=== PATIENT | female | born 1945 | race Caucasian/White ===

== ENCOUNTER → 2018-09-18 | Outpatient (CLI) | payer MEDICARE, OTHER ==
[~2018-09-18] MED LIST: ACTONEL75 MG PO; ALEVE 220MG220 MG PO; FISH OIL REGUL300 MG PO; FLAX SEED OIL1000 MG PO; GARLIC OIL1 MG PO; SYNTHROID0.125 MG/T PO; VITAMIN D32000 IU PO
[2018-09-18 16:57] LABS: CREATININE, serum 0.97 (0.52-1.25); POTASSIUM 4.1 mmol/L (3.4-5.0)
== END ==
LOC: COL.LAB 10:31
PROVIDERS: Internal Medicine Pulmonary Disease
DX: Z01.89 Encounter for other specified special examinations (principal)

== ENCOUNTER 2019-04-18 14:28 | Observation (INO) | payer MEDICARE, OTHER ==
[~2019-04-18] VITALS: Ht 162.6 cm; Wt 60.6 kg
[2019-04-18 15:46] LABS: HEMOGLOBIN 10.4 g/dl (12.5-16.0); MEAN CELL VOLUME 97 fl (80.0-100.0); MEAN CORPUSCULAR HEMOGLOBIN 31 pg (27.0-31.0); MEAN CORPUSCULAR HGB CONC 32 g/dl (33.0-37.0); MEAN PLATELET VOLUME 9.3 fl (7.4-10.4); PLATELET COUNT 283 K/mm3 (130-400); RED BLOOD COUNT 3.33 M/mm3 (4.10-5.30); REDCELL DISTRIBUTION WIDTH-CV 14.4 % (11.5-14.5)
[2019-04-18 15:50] LABS: HEMATOCRIT 32.4 % (37.0-47.0)
[2019-04-18 16:19] LABS: BILIRUBIN,TOTAL 0.7 mg/dL (0.0-1.0); CALCIUM 8.7 mg/dL (8.4-10.2); CREATININE, serum 1.59 (0.52-1.25); POTASSIUM 4.2 mmol/L (3.4-5.0)
[2019-04-18 17:03] LABS: COLLECTION METHOD CLEAN CATCH
[2019-04-18 17:15] LABS: EOSINOPHIL 2 % (0-4); LYMPHOCYTE 32 % (20.0-51.0); NEUTROPHILS 65 % (42.0-75.2); PLATELET ESTIMATE NORMAL (NORMAL)
[2019-04-18 17:18] LABS: HYPOCHROMIA 1+
[2019-04-18 18:01] LABS: HYALINE CAST >12 /lpf; MUCOUS Present /lpf; PH 5 (5-8); URINE APPEARANCE Cloudy; URINE BACTERIA Moderate /hpf; URINE BILIRUBIN Negative (NEGATIVE); URINE BLOOD Negative (NEGATIVE); URINE COLOR Amber; URINE GLUCOSE Negative (NEGATIVE); URINE KETONE Negative (NEGATIVE); URINE LEUKOCYTE ESTERASE 2+ (NEGATIVE); URINE NITRATE Negative (NEGATIVE); URINE PROTEIN(semi-quant) Negative (NEGATIVE); URINE UROBILINOGEN >=4.0 mg/dL (NEGATIVE)
[2019-04-18] MEDS ORDERED: PRINIVIL2.5 MG PO ×2 (18:51→20:45)
[2019-04-18] MEDS ORDERED: SYNTHROID0.05 MG/TA PO (18:53)
[2019-04-18] MEDS ORDERED: FOSAMAX 70MG TA70 MG PO (18:54)
[2019-04-18] MEDS ORDERED: FOLIC ACID 11 MG/TA1 PO ×2 (18:55→20:43)
[2019-04-18] MEDS ORDERED: B-121000 MCG PO (18:55)
[2019-04-18] MEDS ORDERED: ZOCOR5 MG PO ×2 (18:55→20:44)
[2019-04-18] MEDS ORDERED: BINOSTO (20:02)
--- NOTE | 2019-04-18 21:00 | NUR ---
Pt arrived to room 358, transferred per wheelchair by ED staff. Pt awake, a&o, cooperative c cares. Family at bedside. Pt/family oriented to room, unit policies et current POC. Questions invited et answered, pt/family verbalize understanding. IV patent. Pt denies further needs at this time. Call light in reach, will continue c admit process.
[2019-04-18] MEDS ORDERED: ZOCOR 40MG40 MG PO (21:04)
[2019-04-18] MEDS ORDERED: SYNTHROID0.1 MG/TAB PO (21:04)
[2019-04-18] MEDS ORDERED: ZESTORETIC 12.51 TA1 PO (21:06)
[2019-04-18 21:55] VITALS: BP 121/57; PULSE 77; TEMP 98.1
[2019-04-19 05:42] VITALS: BP 138/59; PULSE 76; TEMP 98
[2019-04-19 06:46] LABS: MEAN CELL VOLUME 99 fl (80.0-100.0); MEAN CORPUSCULAR HGB CONC 31 g/dl (33.0-37.0); MEAN PLATELET VOLUME 9.5 fl (7.4-10.4); PLATELET COUNT 219 K/mm3 (130-400); RED BLOOD COUNT 2.84 M/mm3 (4.10-5.30); REDCELL DISTRIBUTION WIDTH-CV 14.1 % (11.5-14.5)
[2019-04-19 06:52] LABS: HEMATOCRIT 28.1 % (37.0-47.0); HEMOGLOBIN 8.8 g/dl (12.5-16.0); MEAN CORPUSCULAR HEMOGLOBIN 31 pg (27.0-31.0)
--- NOTE | 2019-04-19 07:15 | NUR ---
Patient is awake and alert in room, does mention she wishes to have iv fluids discontinued as she would like to go home today. Was notified to discuss this with the providers when they round. Denies pain. Call light and personal items are within reach.
[2019-04-19 07:22] LABS: BAND 2 % (0-10); EOSINOPHIL 1 % (0-4); LYMPHOCYTE 32 % (20.0-51.0); NEUTROPHILS 63 % (42.0-75.2); PLATELET ESTIMATE NORMAL (NORMAL)
[2019-04-19 07:26] LABS: ALBUMIN 3.3 gm/dL (3.5-5.0); CALCIUM 7.8 mg/dL (8.4-10.2); CREATININE, serum 1.17 (0.52-1.25); POTASSIUM 4.3 mmol/L (3.4-5.0); TOTAL PROTEIN 6.1 gm/dL (6.4-8.2)
[2019-04-19 07:40] LABS: BILIRUBIN UNCONJUGATED 0.2 mg/dL (0.0-1.1); BILIRUBIN,DIRECT 0.2 mg/dL (0.0-0.4); BILIRUBIN,TOTAL 0.4 mg/dL (0.0-1.0)
[2019-04-19 08:19] VITALS: BP 152/54; PULSE 74; TEMP 98.7
[2019-04-19] MEDS ORDERED: OMNICEF 300MG300 MG PO (11:29)
[2019-04-19] MEDS ORDERED: ROXICODONE 55 MG/TAB PO (11:29)
--- NOTE | 2019-04-19 11:36 | NUR ---
Utility Aircrewman attended clinical rounds with the team. Patient expressed she wants to go home and has no concerns about doing so at this time. Patient to discharge home today. Following rounds, SW met with patient to discuss discharge planning. Patient lives in [place] with her granddaughter, Jenna. Patient's daughter Raysa (ph#[phone]) is also very involved and helps patient with whatever she needs. Patient sees Dipti Carrillo, Nurse Practitioner for primary care and obtains her medications from the on [place]. Patient uses oxygen at night which she gets from [facility]. Patient reports she is independent with all ADLS. Patient states she has a living will and is considering setting up DPOA-HC. Patient states she will do this through legal services on [place]. Patient plans to return home with her daughter providing transportation.
--- NOTE | 2019-04-19 11:40 | NUR ---
Initial visit; Patient thanked Access Tech for looking in on her, visiting and offering God's blessings.
--- NOTE | 2019-04-19 15:30 | NUR ---
Patient discharged home at 1305 accompanied by daughter. Patient did not wish to review discharge instructions as she stated she would read them at home. She did ask that antibiotic be called to [facility] for easier picking tech for her. This was complete. This nurse assisted patient to front door, she did wish to ambulate, was offered wheelchair. Personal itmes were taken with patient.
== END 2019-04-19 13:05 | disposition home or self-care (01) ==
LOC: COL.ER 14:28 → MEDICAL 18:35
PROVIDERS: Emergency Medicine; ADMIT Student in an Organized Health Care Education/Training Program
DX: N39.0 Urinary tract infection, site not specified (principal); N17.9 Acute kidney failure, unspecified; C78.00 Secondary malignant neoplasm of unspecified lung; C80.1 Malignant (primary) neoplasm, unspecified; R10.9 Unspecified abdominal pain; I10 Essential (primary) hypertension; E78.5 Hyperlipidemia, unspecified; R74.0 Nonspecific elevation of levels of transaminase and lactic acid dehydrogenase [LDH]; E03.9 Hypothyroidism, unspecified; Z90.89 Acquired absence of other organs; Z90.49 Acquired absence of other specified parts of digestive tract; Z79.899 Other long term (current) drug therapy; Z87.891 Personal history of nicotine dependence; Z88.8 Allergy status to other drugs, medicaments and biological substances
CPT/HCPCS: A4216; G0378; J0696; J1644; J2405; J7030

== ENCOUNTER → 2019-10-08 | Outpatient (CLI) | payer MEDICARE, OTHER ==
[~2019-10-08] MED LIST changes: +B-121000 MCG PO; +BINOSTO; +FOLIC ACID 11 MG/TA1 PO; +FOSAMAX 70MG TA70 MG PO; +OMNICEF 300MG300 MG PO; +PEPCID40 MG PO; +PRINIVIL2.5 MG PO; +PRINZIDE 12.5 M1 TA1 PO; +ROXICODONE 55 MG/TAB PO; +SYNTHROID0.05 MG/TA PO; +SYNTHROID0.1 MG/TAB PO; +ZESTORETIC 12.51 TA1 PO; +ZOCOR 40MG40 MG PO; +ZOCOR5 MG PO
== END ==
LOC: COL.RAD 06:23
DX: C34.02 Malignant neoplasm of left main bronchus (principal); R79.89 Other specified abnormal findings of blood chemistry

== ENCOUNTER 2019-10-12 14:00 | Outpatient (RCR) | payer MEDICARE, OTHER ==
[2019-10-11 17:10] VITALS: BP 164/76; PULSE 69; TEMP 97.3
[2019-10-11 18:36] VITALS: BP 171/88; PULSE 74; TEMP 97.5
--- NOTE | 2019-10-11 18:49 | NUR ---
Per pt report she is unclear on home medication list.Requested pt to bring medication list with her to apt tomorrow.
[2019-10-11 18:55] VITALS: BP 172/72; PULSE 75; TEMP 98.1
[2019-10-11 19:10] VITALS: BP 164/76; PULSE 69; TEMP 97.3
[2019-10-11 19:40] VITALS: BP 177/78; PULSE 77; TEMP 97.9
[~2019-10-12] VITALS: Ht 162.6 cm; Wt 69.4 kg
[2019-10-12 14:15] VITALS: BP 120/62; PULSE 72; TEMP 97.9
[2019-10-12 14:58] VITALS: BP 126/68; PULSE 72; TEMP 98.1
[2019-10-12] MEDS ORDERED: ZOFRAN ODT8 MG PO (15:09)
[2019-10-12] MEDS ORDERED: LOMOTIL 0.025 M1 TAB PO (15:09)
[2019-10-12 15:13] VITALS: BP 123/61; PULSE 70; TEMP 98.1
[2019-10-12 15:28] VITALS: BP 121/58; PULSE 63; TEMP 98.1
[2019-10-12 16:00] VITALS: BP 126/74; PULSE 67; TEMP 98.1
== END 2019-10-12 16:00 | disposition home or self-care (01) ==
LOC: EUO 14:00
DX: C34.02 Malignant neoplasm of left main bronchus (principal)
CPT/HCPCS: J7050; P9035

== ENCOUNTER → 2019-10-25 | Outpatient (CLI) | payer MEDICARE, OTHER ==
[~2019-10-25] MED LIST changes: +LOMOTIL 0.025 M1 TAB PO; +ZOFRAN ODT8 MG PO
== END ==
LOC: COL.RAD 10:41
DX: M79.89 Other specified soft tissue disorders (principal); C34.02 Malignant neoplasm of left main bronchus

== ENCOUNTER 2020-01-25 11:30 | Outpatient (RCR) | payer MEDICARE, OTHER ==
[2019-12-27 10:29] VITALS: BP 114/71; PULSE 87; TEMP 98.2
[2019-12-28 11:30] VITALS: BP 140/70; PULSE 76; TEMP 97.6
--- NOTE | 2019-12-28 11:57 | NUR ---
Pt was escorted out by wheelchair to daughter's car. Instructions and PICC information packet sent with pt. [facility] called to request further lab and PICC care orders.
--- NOTE | 2020-01-04 13:30 | NUR ---
Here for cares. PICC intact right upper arm with sterile dressing change done with insertion site cleansed with chloraprep x 1, chlorhexidine impregnated disk, skin prep, stat lock, and tegaderm applied. no signs or symptoms of IV complications noted. no concerns voiced. to return next week for cares. voiced understanding of instructions.
[2020-01-04 13:45] VITALS: BP 102/71; PULSE 105; TEMP 99
[2020-01-04 14:07] LABS: MEAN CELL VOLUME 95 fl (80.0-100.0); MEAN CORPUSCULAR HGB CONC 31 g/dl (33.0-37.0); MEAN PLATELET VOLUME 10.5 fl (7.4-10.4); PLATELET COUNT 237 K/mm3 (130-400); RED BLOOD COUNT 2.99 M/mm3 (4.10-5.30)
[2020-01-04 14:17] LABS: ALBUMIN 2.9 gm/dL (3.5-5.0); BILIRUBIN,TOTAL 0.8 mg/dL (0.0-1.0); CALCIUM 7.9 mg/dL (8.4-10.2); CREATININE, serum 3.35 (0.52-1.25); POTASSIUM 4.2 mmol/L (3.4-5.0); TOTAL PROTEIN 5.9 gm/dL (6.4-8.2)
[2020-01-04 14:39] LABS: BAND 10 % (0-10); LYMPHOCYTE 7 % (20.0-51.0); METAMYELOCYTE 2 % (0-0); NEUTROPHILS 72 % (42.0-75.2); PLATELET ESTIMATE NORMAL (NORMAL)
[2020-01-04 14:40] LABS: HEMATOCRIT 28.4 % (37.0-47.0); HEMOGLOBIN 8.9 g/dl (12.5-16.0); MEAN CORPUSCULAR HEMOGLOBIN 30 pg (27.0-31.0)
--- NOTE | 2020-01-11 09:15 | NUR ---
Here for cares. PICC intact right upper arm with sterile dressing change done with insertion site cleansed with chloraprep x 1, chlorhexidine impregnated disk applied, skin prep, stat lock, and tegaderm applied. no signs or symptoms of IV complications noted. no concerns voiced. re-wrapped with arlyn to protect catheter. to return next to as scheduled for cares. voiced understanding of instructions.
[2020-01-11 09:20] VITALS: BP 88/51; PULSE 90; TEMP 97.8
[2020-01-11 09:26] LABS: MEAN CELL VOLUME 97 fl (80.0-100.0); MEAN CORPUSCULAR HGB CONC 32 g/dl (33.0-37.0); MEAN PLATELET VOLUME 10.2 fl (7.4-10.4); PLATELET COUNT 420 K/mm3 (130-400); RED BLOOD COUNT 2.84 M/mm3 (4.10-5.30); REDCELL DISTRIBUTION WIDTH-CV 18.3 % (11.5-14.5)
[2020-01-11 09:32] LABS: ALBUMIN 2.7 gm/dL (3.5-5.0); BILIRUBIN,TOTAL 0.4 mg/dL (0.0-1.0); CALCIUM 8.5 mg/dL (8.4-10.2); CREATININE, serum 3.5 (0.52-1.25); POTASSIUM 4.7 mmol/L (3.4-5.0); TOTAL PROTEIN 5.6 gm/dL (6.4-8.2)
[2020-01-11 09:50] LABS: BAND 5 % (0-10); BASOPHIL 1 % (0-2); EOSINOPHIL 1 % (0-4); LYMPHOCYTE 26 % (20.0-51.0); NEUTROPHILS 63 % (42.0-75.2); PLATELET ESTIMATE NORMAL (NORMAL)
[2020-01-11 09:53] LABS: HEMATOCRIT 27.6 % (37.0-47.0); HEMOGLOBIN 8.7 g/dl (12.5-16.0); MEAN CORPUSCULAR HEMOGLOBIN 31 pg (27.0-31.0)
--- NOTE | 2020-01-18 09:50 | NUR ---
Here for cares. PICC intact right upper arm with sterile dressing change done with insertion site cleansed with chloraprep x 1, chlorhexidine impregnated disk applied, skin prep, stat lock, and tegaderm applied. no signs or symptoms of IV complications noted. no concerns voiced. to return next week for cares. voiced understanding of instructions.
[2020-01-18 10:13] VITALS: BP 102/57; PULSE 102; TEMP 98.1
[2020-01-18 10:20] LABS: MEAN CELL VOLUME 97 fl (80.0-100.0); MEAN CORPUSCULAR HGB CONC 31 g/dl (33.0-37.0); MEAN PLATELET VOLUME 9.8 fl (7.4-10.4); PLATELET COUNT 407 K/mm3 (130-400); RED BLOOD COUNT 3.12 M/mm3 (4.10-5.30); REDCELL DISTRIBUTION WIDTH-CV 17.6 % (11.5-14.5)
[2020-01-18 10:21] LABS: HEMATOCRIT 30.1 % (37.0-47.0); HEMOGLOBIN 9.2 g/dl (12.5-16.0); MEAN CORPUSCULAR HEMOGLOBIN 29 pg (27.0-31.0)
[2020-01-18 10:31] LABS: ALBUMIN 2.7 gm/dL (3.5-5.0); BILIRUBIN,TOTAL 0.8 mg/dL (0.0-1.0); CALCIUM 8.5 mg/dL (8.4-10.2); CREATININE, serum 3.31 (0.52-1.25); POTASSIUM 4.9 mmol/L (3.4-5.0); TOTAL PROTEIN 5.7 gm/dL (6.4-8.2)
[2020-01-18 10:44] LABS: ANISOCYTOSIS 1+; BAND 1 % (0-10); BASOPHIL 1 % (0-2); EOSINOPHIL 1 % (0-4); HYPOCHROMIA 1+; LYMPHOCYTE 14 % (20.0-51.0); METAMYELOCYTE 1 % (0-0); NEUTROPHILS 76 % (42.0-75.2); PLATELET ESTIMATE INCREASED (NORMAL)
[~2020-01-25] VITALS: Ht 162.6 cm; Wt 55.4 kg
[~2020-01-25 11:30] MED LIST changes: +CALCIJEX I1 MCG/1 ML IV; +CALCIUM 600MG+D1 TAB PO; +EPA FISH OIL1000 MG PO; +FLAXSEED OIL1000 MG PO; +K-DUR20 MEQ PO; +LASIX 20MG TABL20 MG PO; +NATURAL ODORLE400 MG PO; +NORCO 325 MG-51 TAB PO; +OS-CAL 500 + D1 TAB PO; +PHOS LO PO; +PRILOSEC 20MG20 MG PO; +QUESTRAN4 GM/9 GM PO; +ZESTRIL2.5 MG PO; +ZOVIRAX400 MG PO
[2020-01-25 11:45] VITALS: BP 82/53; PULSE 109; TEMP 97.8
[2020-01-25 12:12] LABS: HEMOGLOBIN 10.2 g/dl (12.5-16.0); MEAN CELL VOLUME 95 fl (80.0-100.0); MEAN CORPUSCULAR HEMOGLOBIN 30 pg (27.0-31.0); MEAN CORPUSCULAR HGB CONC 32 g/dl (33.0-37.0); PLATELET COUNT 306 K/mm3 (130-400); RED BLOOD COUNT 3.43 M/mm3 (4.10-5.30); REDCELL DISTRIBUTION WIDTH-CV 18.4 % (11.5-14.5)
[2020-01-25 12:14] LABS: HEMATOCRIT 32.4 % (37.0-47.0)
[2020-01-25 12:16] LABS: ALBUMIN 2.6 gm/dL (3.5-5.0); BILIRUBIN,TOTAL 1.1 mg/dL (0.0-1.0); CALCIUM 8.2 mg/dL (8.4-10.2); CREATININE, serum 4.89 (0.52-1.25); POTASSIUM 5.4 mmol/L (3.4-5.0); TOTAL PROTEIN 5.5 gm/dL (6.4-8.2)
[2020-01-25 12:19] LABS: BAND 4 % (0-10); LYMPHOCYTE 8 % (20.0-51.0); METAMYELOCYTE 1 % (0-0); MYELOCYTE 1 % (0-0); NEUTROPHILS 80 % (42.0-75.2); PLATELET ESTIMATE NORMAL (NORMAL)
== END 2020-02-01 07:58 | disposition home or self-care (01) ==
LOC: EUO 11:30
PROVIDERS: Internal Medicine; Internal Medicine Medical Oncology
DX: Z45.2 Encounter for adjustment and management of vascular access device (principal); Z51.11 Encounter for antineoplastic chemotherapy; C34.02 Malignant neoplasm of left main bronchus; J90 Pleural effusion, not elsewhere classified
CPT/HCPCS: C1751; C1892

== ENCOUNTER → 2020-01-26 | Outpatient (CLI) | payer MEDICARE, OTHER ==
[~2020-01-26] VITALS: Ht 162.6 cm; Wt 57.2 kg
[2020-01-26 11:28] VITALS: BP 94/55; PULSE 105
[2020-01-26 12:50] VITALS: BP 103/52; PULSE 105
== END ==
LOC: COL.RAD 10:48
DX: C34.90 Malignant neoplasm of unspecified part of unspecified bronchus or lung (principal); R18.8 Other ascites

== ENCOUNTER 2020-01-31 04:11 | Inpatient (IN) | payer MEDICARE, OTHER ==
[~2020-01-31] VITALS: Ht 160 cm; Wt 60.5 kg
[2020-01-31 04:53] LABS: HEMOGLOBIN 10.6 g/dl (12.5-16.0); MEAN CELL VOLUME 91 fl (80.0-100.0); MEAN CORPUSCULAR HEMOGLOBIN 29 pg (27.0-31.0); MEAN CORPUSCULAR HGB CONC 32 g/dl (33.0-37.0); MEAN PLATELET VOLUME 10.5 fl (7.4-10.4); PLATELET COUNT 252 K/mm3 (130-400); RED BLOOD COUNT 3.62 M/mm3 (4.10-5.30); REDCELL DISTRIBUTION WIDTH-CV 19.4 % (11.5-14.5)
[2020-01-31 04:55] LABS: HEMATOCRIT 33.1 % (37.0-47.0)
[2020-01-31 05:05] LABS: ALBUMIN 2.5 gm/dL (3.5-5.0); BILIRUBIN,TOTAL 1.8 mg/dL (0.0-1.0); CALCIUM 8.3 mg/dL (8.4-10.2); CREATININE, serum 7.3 (0.52-1.25); MAGNESIUM 2.5 mg/dL (1.6-2.3); TOTAL PROTEIN 5.2 gm/dL (6.4-8.2)
[2020-01-31 05:13] LABS: INR 1.5 (0.8-3.0); PROTHROMBIN TIME 16.8 SECONDS (9.7-12.8); TROPONIN-I 0.02 ng/mL (0.000-0.035)
[2020-01-31 05:16] LABS: PARTIAL THROMBOPLASTIN TIME 28.7 SECONDS (26.0-37.0)
[2020-01-31 05:17] LABS: C-REACTIVE PROTEIN 20.6 mg/dL (0.0-0.9)
[2020-01-31 05:19] LABS: POTASSIUM 6.7 mmol/L (3.4-5.0)
[2020-01-31 05:28] LABS: ANISOCYTOSIS 1+; BAND 1 % (0-10); EOSINOPHIL 1 % (0-4); METAMYELOCYTE 1 % (0-0); NEUTROPHILS 75 % (42.0-75.2); PLATELET ESTIMATE NORMAL (NORMAL)
[2020-01-31 05:29] LABS: LYMPHOCYTE 15 % (20.0-51.0)
[2020-01-31 07:59] LABS: COLLECTION METHOD CLEAN CATCH
[2020-01-31 08:25] LABS: MUCOUS Present /lpf; PH 5 (5-8); SQUAMOUS EPITHELIAL None Seen /hpf; URINE APPEARANCE Hazy; URINE BACTERIA Occasional /hpf; URINE BILIRUBIN Negative (NEGATIVE); URINE BLOOD Negative (NEGATIVE); URINE COLOR Yellow; URINE GLUCOSE Negative (NEGATIVE); URINE KETONE Negative (NEGATIVE); URINE LEUKOCYTE ESTERASE Negative (NEGATIVE); URINE NITRATE Negative (NEGATIVE); URINE PROTEIN(semi-quant) Negative (NEGATIVE); URINE RBC 0-2 /hpf; URINE UROBILINOGEN Negative (NEGATIVE)
[2020-01-31 14:33] LABS: CALCIUM 7.9 mg/dL (8.4-10.2); CREATININE, serum 6.59 (0.52-1.25)
[2020-01-31 14:46] LABS: POTASSIUM 6.3 mmol/L (3.4-5.0)
[2020-01-31 16:18] LABS: CREATININE, serum 6.64 (0.52-1.25)
[2020-01-31 16:36] VITALS: BP 85/61; PULSE 110; TEMP 97.3
[2020-01-31 16:54] VITALS: BP 85/61; PULSE 110; TEMP 97.3
[2020-01-31 18:01] LABS: POTASSIUM 6.4 mmol/L (3.4-5.0)
--- NOTE | 2020-01-31 18:30 | NUR ---
Patient arrived to floor via cart. She is having a lot of nausea, no vomiting since arriving to floor. 250ml of NS bolus infusing. Her potassium is still 6.4. Dr Ernandez notified, kayexalate ordered. Attempted to get patients home medication list updated. Her daughter did not have a correct list, she is going to bring the bottles in the morning so we can update the RXM. Sangita ABDUL, made aware of this and the potassium. Explained to patient the importance of drinking the kayexalate. No other changes at this time. Call light within reach.
[2020-01-31 19:58] VITALS: BP 90/45; PULSE 116; TEMP 97.1
--- NOTE | 2020-01-31 20:04 | NUR ---
Pt is currently lying in bed. Pt did stated that she has some discomfort because she feels she needs to use the restroom. Pt daughter is at bedside. Pt agreed to try a warm blanket to help with comfort. Pt has her call light within reach.
[2020-01-31 20:53] LABS: SODIUM,RANDOM URINE < 5 mmol/L
[2020-01-31 21:15] LABS: CALCIUM 7.9 mg/dL (8.4-10.2); CREATININE, serum 6.94 (0.52-1.25)
[2020-01-31 22:00] LABS: POTASSIUM 5.9 mmol/L (3.4-5.0)
--- NOTE | 2020-01-31 22:05 | NUR ---
CHANTELL Quesada notified of critical lab results by this RN. K+ 5.9 CO2 14
--- NOTE | 2020-01-31 22:37 | NUR ---
Attempted to notify Dr. Ernandez of pt Potassium level. No answer will call back in 10 minutes to given him and update.
[2020-01-31 22:58] VITALS: BP 84/58; PULSE 101; TEMP 97.7
--- NOTE | 2020-01-31 23:15 | NUR ---
Dr. Ernandez was notified about pt potassium levels. He stated no need for any more updates throughout the night he would see pts in the morning.
--- NOTE | 2020-02-01 00:30 | NUR ---
Pt stated that she feels much better now. Pt was having a lot of discomfort with her lovett. Pt stated that she was very uncomfortable early but her nurse Lakia was able to move her catheter and this made it more comfortable for her. Pt stated that it is really bad and she feels like she can't go. I asked the charge nurse to come look at the lovett to see if it could be moved for pt comfort. Pt stated " I don't want this catheter and I won't it to come out now". Pt lovett was removed at this time. Sangita, the hosptialist was aware that the pt was uncomfortable with the lovett catheter and it was removed. 10cc was removed from the balloon and the brenda care was provided at this time. Pt has her call light [employer] and her bed is in lowet position.
[2020-02-01 01:54] VITALS: BP 92/58; PULSE 93
--- NOTE | 2020-02-01 03:00 | NUR ---
Pt has not been able to get much sleep during the night. Sangita the hospitalist was notified on the pt condition and she decided that after talking with pharmacy she wanted her to have a bisacodyl suppository at 0149, pt tolerated well. Pt was also given Zofran at 0016 due to her having nausea. Pt has had nausea off and this was also updated to Sangita and Dr. Pritchard. Pt's heparin was held due to pt refusing and she refused because she was so uncomrfortable at the time the medication was due and wanted to wait until this morning to received the morning dose,. Pt has her call light within reach and was encourgaed to call when she wants to use the restroom.
--- NOTE | 2020-02-01 04:05 | NUR ---
While checking in on pt she stated that she was having a headache. Pt was given 2 Tylenol at this time. Pt tooke the medication well. Pt has no had a lot of sleep tonight. She has still been trying to have a bowel movemment. Pt has her call light within reach and her bed is in lowest position.
--- NOTE | 2020-02-01 04:13 | NUR ---
Pt has had a very uncomfotable night. Pt started the shift with some pain in her abdomen. She stated that she really needed to have a bowel movement. CHANTELL Floyd was contacted about pt and she stated that she did not want pt to have a enema and a suppository at this time. Pt labs did come back earlier and pt potassium had dropped down to 5.9. Sangita was notified and Dr. Ernandez was notified. Pt daughter did stay a little later just to make sure that her mom was comfortable before she left. Pt has attempted to used the bedside commode a couple of times and has had progress as far as a bowel movement. Sangita the hospitalist did come up earlier to talk with me about the pt. She was informed that the pt blood pressures were really low and she ordered for her to have a bolos of fluids at this time. Pt is currently sitting up in bed and has her call light [employer].
--- NOTE | 2020-02-01 05:15 | NUR ---
Upon entering the room pt.'s nurse reported BP's 60's / 30's. Attempted manual bp, very faint, This nurse also got bp at 64/35. CAT call made. Dr. Pritchard notified. Nieves,ICU nurse, Arelis RT, and Mak RT to the room to join JONNATHAN Robledo and this nurse. Daughter called, This nurse reviewed with the daughter about DNR wishes. This nurse educated the daughter on Full code vs. DNR wishes. At this time Pt.'s daughter wishes to make the pt. a DNR. This was varified by two nurses, This nurse and JONNATHAN Pickett. New orders received from Dr. Pritchard. Will remain at bedside.
[2020-02-01 05:44] LABS: HEMOGLOBIN 10.1 g/dl (12.5-16.0); MEAN CORPUSCULAR HEMOGLOBIN 30 pg (27.0-31.0); MEAN CORPUSCULAR HGB CONC 30 g/dl (33.0-37.0); MEAN PLATELET VOLUME 10.7 fl (7.4-10.4); PLATELET COUNT 227 K/mm3 (130-400); RED BLOOD COUNT 3.42 M/mm3 (4.10-5.30); REDCELL DISTRIBUTION WIDTH-CV 20.3 % (11.5-14.5)
[2020-02-01 05:51] LABS: CHLORIDE 107 mmol/L (98-107); CREATININE, serum 7.59 (0.52-1.25); GLUCOSE 143 mg/dL (74-106); SODIUM 135 mmol/L (137-145)
[2020-02-01 05:52] LABS: MEAN CELL VOLUME 99 fl (80.0-100.0)
[2020-02-01 05:56] LABS: POTASSIUM 6.9 mmol/L (3.4-5.0)
[2020-02-01 05:57] LABS: CARBON DIOXIDE < 5 mmol/L (22-30)
[2020-02-01 05:58] LABS: BLOOD UREA NITROGEN 135 mg/dL (7-17)
--- NOTE | 2020-02-01 06:00 | NUR ---
This morning around 0430 the aide went in to get the pt vitals and the pt was was in an uncomfortable position in bed. Pt was helped to a comfortable position and they attepted to get pt vitals. Pt vitals were very low at this time running in the 60's on the top and the 30's on the bottom. I attempted myself mannual and by the dynomap. Pt vitals were still not stable. At this time the Charge nurse was called as well as the pump house engineer just to get another set of eyes to assess the pt. Dr. Pritchard was contacted once the nurse all agree that the pt did not look stable. He then spoke with the charge nurse shortly after and gave her verbal orders to put in . The pt daughter was also contacted by JONNATHAN Foley. Pt vitals are still really low. I was able to hold the pt hand and encourge her throughout everything that was going on. Pt was assessed by JONNATHAN Smith for ICU and Respirtory also came in and assessed her and was able to get a ABG. Pt is currently in bed and stating that she is having a headache. Pt did have a bolos of NS infusing at this time. Pt daughter is currently at bedside and she is very emotioinal. Pt daughter wanted to speak with the Mahin at this time because she wanted prayer. I was able to pray with family at this time and pt was veru thankful. Pt daughter and granddaughter is currently at bedside holding pt hand.
[2020-02-01 06:07] LABS: ARTERIAL BLD GAS O2 SATURATION 85.7 % (92-100); ARTERIAL BLD GAS TCO2 CT 4.6; ARTERIAL BLOOD GAS BASE EXCESS -26.6 (-2-2); ARTERIAL BLOOD GAS PO2 76.9 mmHg (80-100)
[2020-02-01 06:08] LABS: ARTERIAL BLOOD GAS PCO2 18.8 mmHg (35-45); ARTERIAL BLOOD GAS pH 6.94 (7.35-7.45)
[2020-02-01 06:20] VITALS: BP 67/30; PULSE 104; TEMP 93.3
[2020-02-01 06:53] LABS: BAND 5 % (0-10); LYMPHOCYTE 5 % (20.0-51.0); NEUTROPHILS 90 % (42.0-75.2); PLATELET ESTIMATE NORMAL (NORMAL); POLYCHROMASIA 1+
[2020-02-01 06:54] LABS: ANISOCYTOSIS 2+; BURR CELLS 1+
--- NOTE | 2020-02-01 07:00 | NUR ---
Pt is currently lying in bed with family at bedside. I did contact Dr. Pritchard this morning to let him know the updated status of the pt and her current vitals her informed me that he would be up to assess pt and come in and speak with family about the pt condition. Pt has her family at her bedside. I reported off JONNATHAN Dorman and we both were both updated by [facility] Hospitalist about the pt going to be comfort care and she wanted pain medication ordered at this for pt. JONNATHAN Montoya was able to get the orders and is currently with the pt.
--- NOTE | 2020-02-01 07:40 | NUR ---
Professor Of Law called to room. Professor Of Law prayed with patient, daughter and granddaughter.
--- NOTE | 2020-02-01 08:00 | NUR ---
Patients family is at bedside. Patient is currently alert and speaking with family. Her conversation is confused. Ghazala ABDUL spoke with patient and her daughter. They have decided to place patient on comfort care and discontinue all cares, labs and medications. Roxanol given for pain and comfort. Scopalamine patch placed as ordered, also gave eye drops as requested by family. They zoey stopped by to see patient. Ghazala Flores RN is in the room with the family. We removed the equipment from the room. IVF's discontinued. Patient appears comfortable at this time. No other changes at this time. Call light within reach.
[2020-02-01 08:47] VITALS: BP 139/49; PULSE 97; TEMP 93.7
[2020-02-01 08:55] VITALS: BP 59/46; PULSE 123; TEMP 94.1
--- NOTE | 2020-02-01 09:05 | NUR ---
Called to comfort care pt by Vane ABDUL. Pt is very weak, speech is hard to understand, daughter and granddaughter are at bedside. Comfort Quilt applied. Given dose of roxanol for comfort along with explanation of its purpose. Pt notably more relaxed within 15 minutes. Pt has just changed to comfort care after a CAT call. Sinai hugger was removed, telemetry dc'd, BP cuff off. Bed lowered and HOB raised to help with comfort and breathing. Pt remains on 02 by mask. Support provided to daughter and granddaughter. Daughter has called several family members to advise of the change in her mother's status and let them talk to her mother by phone. Pt reports mouth is dry and wants drink but was unable to even keep water in mouth as it ran out the other side of her mouth. Family encouraged to call if need anything. Also spoke with primary nurse Lakia.
--- NOTE | 2020-02-01 11:55 | NUR ---
Patient has . Ghazala ABDUL and Ghazala Flores RN were in the room with patient and family. The zoey visited with family. adjustment supervisor notified. Family was at bedside with patient. Daughter is having a hard time. She stated this happened faster than they were expecting. No other changes at this time. Will notify the home when family is ready.
--- NOTE | 2020-02-01 12:33 | NUR ---
I sat with pt and her granddaughter/daughter this morning. Daughter is really struggling to accept her mother's . I did give Karly a second dose of roxanol 10mg at 1116 as daughter was very concerned that her mother was suffering. Pt did continue with shallow breaths. I did turn her 02 down to 5l/mask after the second morphine dose to prevent further drying of her mucous membranes after talking with her daughter. Pt appeared to take her last breath right before Vane ABDUL stopped in and then Dr Pritchard did pronounce her right after that. Daughter is very concerned about what to do now. We talked about selecting a home and that we would prepare the body for release. Support provided by avani Whittenlain as well during this time. Family was given time alone with the body. Report to Lakia DE SANTIAGO, primary nurse.
--- NOTE | 2020-02-01 12:35 | NUR ---
Initial visit; Nurse called Security Operations Specialist to patient's room to comfort family of patient who appeared to be near . Security Operations Specialist remained with family until Security Operations Specialist Ignacio, who had met with family earlier arrived to pray and comfort family.
--- NOTE | 2020-02-01 13:41 | NUR ---
Call placed to [facility] by this Powder Room Attendant. After review of the chart with [facility] patient is not a candidate for donation at this time due to her complex medical condition. Confirmation number is [id number]. Patient will be sent to the home with a gold colored wedding band with a stone; 2 braclets one white colored metal and one gold colored. She is also wearing 3 sets of earrings of muliple colors with clear stones. Patient has upper denture and partial bottoms. No clothes or other belongings noted in room. Corporate General Manager made aware of home choice by family and the patient is ready to be released. Dipti Santacruz, [facility] office made aware of patients . Dr. Pritchard will sign the certificate. Patient cleaned; IV's removed and made ready for the home. No other needs at this time.
--- NOTE | 2020-02-01 15:20 | NUR ---
Patients body has been released to [facility].
== END 2020-02-01 15:20 | disposition expired | DRG 435 ==
LOC: COL.ER 04:11 → SURG 13:46
PROVIDERS: Emergency Medicine; Family Medicine; Physician Assistant; Student in an Organized Health Care Education/Training Program; ADMIT Hospitalist
DX: C78.7 Secondary malignant neoplasm of liver and intrahepatic bile duct (principal); N18.6 End stage renal disease; E87.2 Acidosis; N17.9 Acute kidney failure, unspecified; C34.90 Malignant neoplasm of unspecified part of unspecified bronchus or lung; J91.0 Malignant pleural effusion; E87.1 Hypo-osmolality and hyponatremia; R18.8 Other ascites; I12.0 Hypertensive chronic kidney disease with stage 5 chronic kidney disease or end stage renal disease; R10.9 Unspecified abdominal pain; E03.9 Hypothyroidism, unspecified; M81.0 Age-related osteoporosis without current pathological fracture; K21.9 Gastro-esophageal reflux disease without esophagitis; I12.9 Hypertensive chronic kidney disease with stage 1 through stage 4 chronic kidney disease, or unspecified chronic kidney disease; E87.5 Hyperkalemia; Z87.891 Personal history of nicotine dependence; Z90.49 Acquired absence of other specified parts of digestive tract; I95.9 Hypotension, unspecified; Z51.5 Encounter for palliative care
CPT/HCPCS: 99223-AI; 99239; A4314; J0610; J0696; J1644; J1815; J2405; J3010; J7030; J7040; J7050